=== PATIENT | male | born 1945 | race Caucasian/White ===

== ENCOUNTER 2018-09-23 08:54 | Day surgery (SDC) | payer BC ==
[2018-09-21 15:22] VITALS: BP 107/72
[2018-09-21 15:26] LABS: EOSINOPHILS % (AUTO) 3.4 % (0.0-8.0); HEMATOCRIT 35.3 % (42-54); LYMPHOCYTES % (AUTO) 16.1 % (21.0-51.0); MEAN CORPUSCULAR HEMOGLOBIN 31.6 pg (27.0-33.0); MEAN CORPUSCULAR HGB CONC 33.9 g/dL (32.0-36.0); MONOCYTES % (AUTO) 11.1 % (3.0-13.0); NEUTROPHILS % (AUTO) 68.4 % (40.0-77.0); PLATELET COUNT (AUTO) 230 K/uL (130-400); WHITE BLOOD COUNT (AUTO) 6.9 K/uL (4.8-10.8)
[2018-09-21 15:32] LABS: CREATININE 1.5 mg/dL (0.5-1.5); POTASSIUM 4.4 mmol/L (3.5-5.1)
[2018-09-21 15:39] LABS: INR 1.2 (0.85-1.15); PARTIAL THROMBOPLASTIN TIME 34.2 SEC (26.3-35.5); PROTHROMBIN TIME 12.6 SEC (9.6-11.6)
[~2018-09-23] VITALS: Ht 175.3 cm; Wt 91.6 kg
[~2018-09-23 08:54] MED LIST: DILT180C47 PO; FURO80TA87 PO; POTA-79 PO; RIVA20TA PO
[2018-09-23 09:29] VITALS: BP 108/72
[2018-09-23] MEDS ORDERED: SODIUM CHLORIDE 0.9% 1000ML 1,000 ML IV ONE (09:34)
[2018-09-23] MEDS ORDERED: [UNRECOGNIZED DRUG - OTHER] PO (09:40)
[2018-09-23] MEDS ORDERED: PROPOFOL 10 MG/ML 20ML VIAL IV ONE (10:58)
[2018-09-23 11:45] VITALS: BP 117/70
== END 2018-09-23 12:00 | disposition home or self-care (01) ==
LOC: DAH 08:54
PROVIDERS: ATTEND Internal Medicine Cardiovascular Disease
DX: I48.1 Persistent atrial fibrillation (principal); J44.9 Chronic obstructive pulmonary disease, unspecified; Z98.890 Other specified postprocedural states; Z79.899 Other long term (current) drug therapy; Z68.29 Body mass index [BMI] 29.0-29.9, adult; E66.9 Obesity, unspecified; I10 Essential (primary) hypertension; R06.02 Shortness of breath; M19.90 Unspecified osteoarthritis, unspecified site; I45.10 Unspecified right bundle-branch block
CPT/HCPCS: 36415; 80048; 85025; 85610; 85730; 92960; 93005 ×2; A4606; J2704; J7030

== ENCOUNTER 2018-10-19 15:37 | Emergency (ER) | payer BC, MEDICARE ==
[~2018-10-19 15:37] MED LIST changes: +[UNRECOGNIZED DRUG - OTHER] PO
[2018-10-19 15:52] LABS: BASOPHILS % (AUTO) 0.5 % (0.0-5.0); EOSINOPHILS % (AUTO) 2.4 % (0.0-8.0); HEMATOCRIT 36.9 % (42-54); LYMPHOCYTES % (AUTO) 16.8 % (21.0-51.0); MEAN CORPUSCULAR HEMOGLOBIN 29.3 pg (27.0-33.0); MEAN CORPUSCULAR HGB CONC 32.3 g/dL (32.0-36.0); MEAN CORPUSCULAR VOLUME 90.7 fL (79-99); NEUTROPHILS % (AUTO) 70.3 % (40.0-77.0); NUCLEATED RED BLOOD CELLS 0.1 % (0.0-0.19); PLATELET COUNT (AUTO) 235 K/uL (130-400); RED BLOOD CELL COUNT(AUTO) 4.07 MIL/uL (4.50-6.20); RED CELL DISTRIBUTION WIDTH 14.4 % (11.0-15.5); WHITE BLOOD COUNT (AUTO) 7.9 K/uL (4.8-10.8)
[2018-10-19 16:07] LABS: CREATININE 1.8 mg/dL (0.5-1.5); INR 1.27 (0.85-1.15); PARTIAL THROMBOPLASTIN TIME 34.1 SEC (26.3-35.5); POTASSIUM 4.1 mmol/L (3.5-5.1); PROTHROMBIN TIME 13.3 SEC (9.6-11.6)
[2018-10-19 16:12] LABS: ALBUMIN 3.7 g/dL (3.5-5.0); BILIRUBIN,TOTAL 0.7 mg/dL (0.2-1.0); TOTAL PROTEIN, SERUM 7.1 g/dL (6.0-8.3)
== END 2018-10-19 17:27 | disposition home or self-care (01) ==
LOC: EDH 15:37
DX: I48.91 Unspecified atrial fibrillation (principal); R06.02 Shortness of breath; I25.810 Atherosclerosis of coronary artery bypass graft(s) without angina pectoris; Z98.890 Other specified postprocedural states
CPT/HCPCS: 36415; 71045; 80053; 84484; 85025; 85610; 85730; 93005

== ENCOUNTER 2018-12-04 05:50 | Observation (INO) | payer BC, MEDICARE ==
[2018-12-02 13:10] VITALS: BP 129/72
[2018-12-02 13:19] LABS: BASOPHILS % (AUTO) 0.6 % (0.0-5.0); EOSINOPHILS % (AUTO) 1.6 % (0.0-8.0); HEMATOCRIT 33.2 % (42-54); LYMPHOCYTES % (AUTO) 12.2 % (21.0-51.0); MEAN CORPUSCULAR HEMOGLOBIN 28.2 pg (27.0-33.0); MEAN CORPUSCULAR HGB CONC 32.9 g/dL (32.0-36.0); MEAN CORPUSCULAR VOLUME 85.7 fL (79-99); MONOCYTES % (AUTO) 10.3 % (3.0-13.0); NEUTROPHILS % (AUTO) 75.3 % (40.0-77.0); PLATELET COUNT (AUTO) 213 K/uL (130-400); RED BLOOD CELL COUNT(AUTO) 3.87 MIL/uL (4.50-6.20); RED CELL DISTRIBUTION WIDTH 15.5 % (11.0-15.5)
[2018-12-02 13:27] LABS: CREATININE 1.8 mg/dL (0.5-1.5); POTASSIUM 3.7 mmol/L (3.5-5.1)
[2018-12-02 13:30] LABS: INR 1.47 (0.85-1.15); PARTIAL THROMBOPLASTIN TIME 39.2 SEC (26.3-35.5); PROTHROMBIN TIME 15.3 SEC (9.6-11.6)
--- NOTE | 2018-12-02 17:49 | NUR ---
ABNORMAL LABS REPORTED ALL ABNORMAL LBAS TO DR. TRIPLETT. PT/PTT/INR, CREATINE. NO NEW ORDERS.
[~2018-12-04] VITALS: Ht 177.8 cm; Wt 89.9 kg
[2018-12-04] VITALS (13 sets, daily range): BP systolic 95–142; BP diastolic 62–98
[~2018-12-04 05:50] MED LIST changes: -DILT180C47 PO; +DILT180T12 PO; -[UNRECOGNIZED DRUG - OTHER] PO
[2018-12-04] MEDS ORDERED: CEFAZOLIN SODIUM 1 GM VIAL IVP SCH (06:00)
--- NOTE | 2018-12-04 07:58 | NUR ---
EDEMA TO LEFT UPPER CHEST CHRONIC. Addendum: 12/04/18 at 0759 by MIGUEL NORIEGA RN RN Amended: Links added.
[2018-12-04] MEDS ORDERED: SODIUM CHLORIDE 0.9% 1000ML 1,000 ML IV ONE (08:52)
[2018-12-04] MEDS ORDERED: LIDOCAINE HCL-MPF 2% 10ML AMP IJ ONE (09:42)
[2018-12-04] MEDS ORDERED: LIDOCAINE HCL 1% MDV 50ML VIAL ONE (09:42)
[2018-12-04] MEDS ORDERED: CEFAZOLIN SODIUM 1 GM VIAL ONE (09:42)
[2018-12-04] MEDS ORDERED: BUPIVACAINE/PF 0.25% 30ML VIAL IJ ONE (09:43)
[2018-12-04] MEDS ORDERED: IODIXANOL 320 MG/ML 100 ML VIAL ONE (09:58)
[2018-12-04] MEDS ORDERED: MIDAZOLAM HCL 1 MG/ML 2ML VIAL ONE ×5 (10:16→12:44)
[2018-12-04] MEDS ORDERED: MEPERIDINE-PF 25 MG/ML SYG ONE ×5 (10:16→12:44)
[2018-12-04] MEDS ORDERED: TEMAZEPAM 30 MG CAP PO PRN (13:45)
[2018-12-04] MEDS ORDERED: ACETAMINOPHEN 325 MG TAB PO PRN (13:45)
[2018-12-04] MEDS ORDERED: ONDANSETRON HCL 4 MG/2 ML VIAL IV PRN (13:45)
[2018-12-04] MEDS ORDERED: ACETAMINOPHEN-CODEINE 300/30MG TAB PO PRN (13:45)
--- NOTE | 2018-12-04 14:37 | NUR ---
PATIENT RECEIVED FROM [employer] LIBRARIAN S/P ABLATION AND PACEMAKER EXCHANGE. PATIENT AWAKE AND ALERT X4, VOICES ALL NEEDS. NO COMPLAINTS OF PAIN VOICED AT THIS TIME. VITALS STABLE. AFEBRILE. LEFT ARM IN SLING DRESSING TO LEFT CHEST DRY AND INTACT. NO ACTIVE BLEEDING NOTED. NO SIGNS OF DISTRESS NOTED. ORIENTED TO ROOM. DIET ORDERED. HOB ELEVATED, CALL LIGHT WITHIN REACH. WILL CONTINUE TO BE OBSERVED. Addendum: 12/04/18 at 1945 by HUSSAIN NORIEGA RN RN Amended: Links added.
--- NOTE | 2018-12-04 15:15 | NUR ---
MD ALBERTO LEBLANC VISITED WITH PATIENT. POC DISCUSSED. ALL QUESTIONS ANSWERED BY MD. PATIENT HAPPY WITH CARE BEING GIVEN. IN GOOD SPIRITS. ENCOURAGE PATIENT NOT TO RAISE LEFT ARM OVER SHOULDER. PATIENT VERBALIZED UNDERSTANDING OF ALL EDUCATION GIVEN VIA TEACH BACK. NO SIGNS OF DISTRESS NOTED. LEFT ARM IN SLING. NO HEMATOMA NOTED TO SITE. PER PATIENT HE STATES CHEST EDEMA IS NORMAL AND CHRONIC. LEFT ARM ALSO ELEVATED ON PILLOW FOR COMFORT. CALL LIGHT WITHIN REACH. WILL CONTINUE TO BE OBSERVED. Addendum: 12/04/18 at 1948 by HUSSAIN NORIEGA RN RN Amended: Links added.
[2018-12-04] MEDS: ACETAMINOPHEN-CODEINE 300/30MG TAB PO PRN (18:30)
[2018-12-04] MEDS: FUROSEMIDE 80 MG TABLET PO SCH (20:47)
[2018-12-05 03:48] VITALS: BP 106/69
[2018-12-05 08:06] VITALS: BP 111/76
[2018-12-05] MEDS: ACETAMINOPHEN-CODEINE 300/30MG TAB PO PRN (08:20)
[2018-12-05] MEDS: FUROSEMIDE 80 MG TABLET PO SCH (08:40)
[2018-12-05] MEDS ORDERED: POTASSIUM CHLORIDE 20 MEQ ERTAB PO SCH (09:00)
[2018-12-05] MEDS ORDERED: TYL3 PO (09:06)
--- NOTE | 2018-12-05 12:00 | NUR ---
DISCHARGE INSTRUCTIONS/INFORMATION GIVEN TO PATIENT. TEACH BACK METHOD USED TO EDUCATE PATIENT ON POST-PACEMAKER ACTIVITY RESTRICTIONS, PROPER CARDIAC DIET, WHAT TO MONITOR, WHEN TO CALL THE DOCTOR, AND FOLLOW UP APPOINTMENTS. PIV REMOVED. TIP WAS INTACT. DEVICE WAS INTERROGATED. DRESSING TO LEFT PECTORAL INCISION SITE WAS CHANGED ASEPTICALLY AND SECURED WITH TEGADERM. ALL BELONGINGS WERE PACKED. HE WAS SAFELY WHEELED TO HIS FRIEND'S CAR.
== END 2018-12-05 11:10 | disposition home or self-care (01) ==
LOC: DAH 05:50 → DAHIP 05:51 → 2DH 14:50
PROVIDERS: ADMIT Internal Medicine; ATTEND Internal Medicine
DX: I48.2 Chronic atrial fibrillation (principal); I42.8 Other cardiomyopathies; I95.9 Hypotension, unspecified; I50.22 Chronic systolic (congestive) heart failure; I82.B22 Chronic embolism and thrombosis of left subclavian vein; Z79.899 Other long term (current) drug therapy
CPT/HCPCS: 33225; 33229; 36415; 71045; 80048; 85025; 85610; 85730; 93005 ×2; 93650; A4606; A4649; C1732; C1769 ×2; C1894 ×2; C1900; C2621; G0378 ×29; J0690; J1644; J2175 ×5; J2250 ×5; J3490 ×3; J7030; Q9967; 99156; 99157

== ENCOUNTER → 2019-03-03 | Outpatient (CLI) | payer BC ==
[~2019-03-03] MED LIST changes: +DILT180C3 PO; -DILT180T12 PO; +LEVO5TAB13 PO
== END | disposition home or self-care (01) ==
LOC: SHCH 08:57
PROVIDERS: ATTEND Internal Medicine Cardiovascular Disease
DX: I71.4 Abdominal aortic aneurysm, without rupture (principal)
CPT/HCPCS: 93978

== ENCOUNTER → 2019-04-02 | Outpatient (CLI) | payer BC | END | disposition home or self-care (01) | LOC: RAH 04-01 13:44 | PROVIDERS: ATTEND Internal Medicine Critical Care Medicine | DX: I51.7 Cardiomegaly (principal); Z95.0 Presence of cardiac pacemaker | CPT/HCPCS: 71250 ==

== ENCOUNTER 2021-11-23 08:37 | Day surgery (SDC) | payer OTHER ==
[2021-11-21 10:15] LABS: BASOPHILS % (AUTO) 0.5 % (0.0-5.0); EOSINOPHILS % (AUTO) 2.4 % (0.0-8.0); HEMATOCRIT 36.7 % (42-54); LYMPHOCYTES % (AUTO) 10.5 % (21.0-51.0); MEAN CORPUSCULAR HEMOGLOBIN 31.4 pg (27.0-33.0); MEAN CORPUSCULAR HGB CONC 32.4 g/dL (32.0-36.0); MEAN CORPUSCULAR VOLUME 96.8 fL (79-99); MONOCYTES % (AUTO) 11.3 % (3.0-13.0); NEUTROPHILS % (AUTO) 74.8 % (40.0-77.0); PLATELET COUNT (AUTO) 170 K/uL (130-400); RED BLOOD CELL COUNT(AUTO) 3.79 MIL/uL (4.50-6.20); RED CELL DISTRIBUTION WIDTH 17.2 % (11.0-15.5); WHITE BLOOD COUNT (AUTO) 5.9 K/uL (4.8-10.8)
[2021-11-21 10:18] LABS: APPEARANCE,URINE Clear (CLEAR); BILIRUBIN,URINE Negative (NEGATIVE); COLOR,URINE Yellow (YELLOW); GLUCOSE, URINE (UA) Negative (NEGATIVE); KETONES,URINE Negative (NEGATIVE); LEUKOCYTE ESTERASE ,URINE Trace (NEGATIVE); NITRATE,URINE Negative (NEGATIVE); OCCULT BLOOD,URINE Negative (NEGATIVE); PROTEIN,URINE Negative (NEGATIVE)
[2021-11-21 10:22] LABS: CREATININE 2.2 mg/dL (0.5-1.5); POTASSIUM 3.6 mmol/L (3.5-5.1)
[2021-11-21 10:25] LABS: INR 1.11 (0.85-1.15)
[2021-11-21 10:26] LABS: PARTIAL THROMBOPLASTIN TIME 28.6 SEC (26.3-35.5)
[2021-11-21 10:28] LABS: BACTERIA,URINE Rare /HPF (None Seen); RBC,URINE 0-1 /HPF (0-1); SQUAMOUS EPITHELIAL CELL,UR Few /HPF (0-2); WBC,URINE 0-1 /HPF (0-1)
[2021-11-21 10:33] VITALS: BP 102/63
[2021-11-23] VITALS (10 sets, daily range): BP systolic 98–132; BP diastolic 63–81
[~2021-11-23] VITALS: Ht 175.3 cm; Wt 87.9 kg
[~2021-11-23 08:37] MED LIST changes: +0.9% NACL 500ML IV.SOLN 500 ML IV SCH; +0.9%NACL 1000ML 1,000 ML IV ONE; +ALLO100T PO; +APIX5TAB PO; +ATOR20TA65 PO; +BUPR150T8 PO; -DILT180C3 PO; +FERR-82 PO; +FURO40TA7 PO; -FURO80TA87 PO; -LEVO5TAB13 PO; +METO2.5T2 PO; +MONT-39 PO; -RIVA20TA PO
[2021-11-23] MEDS ORDERED: SODIUM BICARB 50MEQ 50ML VIAL 50 ML ONE (12:21)
[2021-11-23] MEDS ORDERED: IOHEXOL 350 MG/ML 100ML INFUS..BTL IV ONE (12:21)
[2021-11-23] MEDS ORDERED: IOHEXOL-350 50ML VIAL IV ONE (12:21)
[2021-11-23] MEDS ORDERED: NITROGLYCERIN 50MG VIAL IV ONE (12:21)
[2021-11-23] MEDS ORDERED: LIDOCAINE HCL 400MG/20ML VIAL ONE (12:21)
[2021-11-23] MEDS ORDERED: MIDAZOLAM HCL 1 MG/ML 2ML VIAL ONE ×3 (13:01→13:08)
[2021-11-23] MEDS ORDERED: MEPERIDINE-PF 25 MG/ML SYG ONE ×3 (13:01→13:08)
[2021-11-23] MEDS ORDERED: 0.9%NACL 1000ML 1,000 ML IV SCH (14:00)
== END 2021-11-23 18:05 | disposition home or self-care (01) ==
LOC: DAH 08:37
PROVIDERS: ATTEND Internal Medicine Cardiovascular Disease
DX: I25.119 Atherosclerotic heart disease of native coronary artery with unspecified angina pectoris (principal); I48.20 Chronic atrial fibrillation, unspecified; N18.5 Chronic kidney disease, stage 5; I50.42 Chronic combined systolic (congestive) and diastolic (congestive) heart failure; I49.5 Sick sinus syndrome; G47.33 Obstructive sleep apnea (adult) (pediatric); K21.9 Gastro-esophageal reflux disease without esophagitis; Z95.0 Presence of cardiac pacemaker; Z79.82 Long term (current) use of aspirin; Z79.899 Other long term (current) drug therapy; Z79.01 Long term (current) use of anticoagulants; Z98.890 Other specified postprocedural states
CPT/HCPCS: 36415; 71045; 80048; 81001; 85025; 85610; 85730; 93005; 93458; A4215; A4216; A4221; A4222; A4223 ×3; A4606; A4663; A6260; C1760; C1894; J1644; J2175 ×3; J2250 ×3; J3490 ×3; J7030; Q9965; Q9967 ×2; 93454; 99156; 99157

== ENCOUNTER → 2022-09-05 | Outpatient (CLI) | payer OTHER ==
[~2022-09-05] MED LIST changes: -0.9% NACL 500ML IV.SOLN 500 ML IV SCH; -0.9%NACL 1000ML 1,000 ML IV ONE; +BUPR-113 PO; -BUPR150T8 PO
== END | disposition home or self-care (01) ==
LOC: SHCH 15:00
PROVIDERS: ATTEND Internal Medicine Cardiovascular Disease
DX: I08.3 Combined rheumatic disorders of mitral, aortic and tricuspid valves (principal); I25.10 Atherosclerotic heart disease of native coronary artery without angina pectoris; Z95.0 Presence of cardiac pacemaker
CPT/HCPCS: 93306

== ENCOUNTER → 2022-09-07 | Outpatient (CLI) | payer OTHER | END | disposition home or self-care (01) | LOC: SHCH 14:16 | PROVIDERS: ATTEND Internal Medicine Cardiovascular Disease | DX: I25.10 Atherosclerotic heart disease of native coronary artery without angina pectoris (principal); R06.00 Dyspnea, unspecified; R60.9 Edema, unspecified | CPT/HCPCS: 93971 ==

== ENCOUNTER → 2022-12-25 | Outpatient (CLI) | payer OTHER ==
[2022-12-25 14:14] LABS: POTASSIUM 3.1 mmol/L (3.5-5.1)
== END | disposition home or self-care (01) ==
LOC: LAB 11:47
PROVIDERS: ATTEND Internal Medicine Cardiovascular Disease
DX: I50.22 Chronic systolic (congestive) heart failure (principal)
CPT/HCPCS: 36415; 80048